=== PATIENT | male | born 1950 | race Caucasian/White ===

== ENCOUNTER 2019-05-31 19:35 | Inpatient (IN) | payer OTHER ==
[~2019-05-31] VITALS: Ht 175.3 cm; Wt 61.5 kg
[2019-05-31] MEDS ORDERED: POLYETHYLENE GLYCOL (19:59)
[2019-05-31] MEDS ORDERED: ASPI-496 PO (19:59)
[2019-05-31] MEDS ORDERED: CYAN100028 PO (19:59)
[2019-05-31] MEDS ORDERED: DOCUSATE (19:59)
[2019-05-31] MEDS ORDERED: HYDR-3240 PO (19:59)
[2019-05-31] MEDS ORDERED: ENSURE (19:59)
[2019-05-31] MEDS ORDERED: LEVE500T53 PO (19:59)
[2019-05-31] MEDS ORDERED: DICY10CA3 PO (19:59)
[2019-05-31] MEDS ORDERED: PANT40TA5 PO (19:59)
[2019-05-31] MEDS ORDERED: MULTIVITAMIN (19:59)
[2019-05-31] MEDS ORDERED: SODIUM CHLORIDE 0.9% 1,000ML IVBOLUS ONE (20:30)
[2019-05-31] MEDS ORDERED: MORPHINE SULFATE 4 MG/ML, 1ML IVPush PRN (20:30)
--- NOTE | 2019-05-31 20:31 | NUR ---
pt brought to rr and back to room. lab now at bedside. awaiting esophagram
[2019-05-31] MEDS ORDERED: MORPHINE SULFATE 4 MG/ML, 1ML ONE (20:40)
--- NOTE | 2019-05-31 20:43 | NUR ---
pt in radiology at this time
[2019-05-31] MEDS ORDERED: OMNIPAQUE 350 MG/ML, 150 ML BOTTLE ONE (20:52)
--- NOTE | 2019-05-31 21:00 | NUR ---
PT MEDICATED FOR COMPLAINT OF RIGHT ARM PAIN. POC DISCUSSED. PT DENIES FURTHER NEEDS AT THIS TIME.
[2019-05-31 21:07] LABS: TROPONIN I < 0.015 ng/mL (0.000-0.045)
--- NOTE | 2019-05-31 21:30 | NUR ---
MD AT BEDSIDE DISCUSSING POC. PT AGREEABLE TO ADMIT. PT AND SPOUSE DENY FURTHER NEEDS AT THIS TIME.
[2019-05-31] MEDS ORDERED: D5%-0.45NACL+KCL 20MEQ 1,000 ML IV SCH (21:47)
[2019-05-31] MEDS ORDERED: hydrALAzine 20 MG/ML, 1ML IVPush PRN (22:00)
[2019-05-31] MEDS ORDERED: ONDANSETRON ODT 4 MG PO PRN (22:00)
[2019-05-31 22:21] VITALS: BP 147/73
[2019-05-31] MEDS ORDERED: D5%-0.9% NACL 1,000 ML IV SCH (22:30)
[2019-05-31 22:42] LABS: FREE T4 (FREE THYROXINE) 0.95 ng/dL (0.76-1.46)
[2019-05-31] MEDS ORDERED: OMNIPAQUE 350 MG/ML, 75ML BOTTLE ONE (23:34)
[2019-06-01] MEDS: morphine SULFATE 10 MG/ML, 1ML IVPush PRN ×4 (00:24→06:18)
[2019-06-01 01:02] LABS: CLOSTRIDIUM DIFFICILE ANTIGEN NEGATIVE; CLOSTRIDIUM DIFFICILE TOXIN NEGATIVE (Negative)
[2019-06-01 02:11] VITALS: BP 126/65
[2019-06-01 04:27] LABS: BASOPHILS # (AUTO) 0.07 x10^3/uL (0-0.1); BASOPHILS % (AUTO) 1 % (0-1); EOSINOPHILS # (AUTO) 0.06 x10^3/uL (0-0.4); EOSINOPHILS % (AUTO) 1 % (1-7); LYMPHOCYTES # (AUTO) 1.15 x10^3/uL (1-3.4); LYMPHOCYTES % (AUTO) 12 % (22-44); MD NO; MEAN CORPUSCULAR HGB CONC 32.3 g/dL (33.2-36.2); MEAN CORPUSCULAR VOLUME 89.9 fL (81-97); MEAN PLATELET VOLUME 7.5 fL (7.4-10.4); MONOCYTES # (AUTO) 0.87 x10^3/uL (0.2-0.8); MONOCYTES % (AUTO) 9 % (2-9); NEUTROPHILS # (AUTO) 7.38 x10^3/uL (1.8-6.8); NEUTROPHILS % (AUTO) 78 % (42-75); PLATELET COUNT 332 x10^3/uL (130-400); RED BLOOD COUNT 4.35 x10^6/uL (4.38-5.82); RED CELL DISTRIBUTION WIDTH 15.2 % (9.4-14.8)
[2019-06-01 04:35] LABS: ALANINE AMINOTRANSFERASE 32 U/L (12-78); ALBUMIN 2.8 g/dL (3.4-5.0); ANION GAP 5 mmol/L (5-15); CALCIUM 8.4 mg/dL (8.5-10.1); CHLORIDE 110 mmol/L (98-107); CREATININE 0.66 mg/dL (0.7-1.3)
[2019-06-01 04:39] LABS: ALKALINE PHOSPHATASE 92 U/L (45-117); BILIRUBIN,TOTAL 0.3 mg/dL (0.2-1.0); CHOL/HDL RATIO 3.9; CHOLESTEROL, TOTAL 205 mg/dL (140-239); HDL CHOL % 25 % (26-37); HDL CHOLESTEROL (DIRECT) 52 mg/dL (40-60); LDL CHOLESTEROL,CALCULATED 130 mg/dL (54-169); LDL/HDL RATIO 2.5 (0.5-3.0); TOTAL PROTEIN 5.9 g/dL (6.4-8.2); TRIGLYCERIDES 117 mg/dL (50-200); VLDL CHOLESTEROL 23 mg/dL (0-25)
[2019-06-01 06:59] VITALS: BP 133/79
[2019-06-01] MEDS ORDERED: PANTOPRAZOLE 40 MG IV IVPush SCH (09:00)
[2019-06-01] MEDS: LEVETIRACETAM 500 MG in SODIUM CHLORIDE 0.9% 100 ML IV SCH (10:56)
[2019-06-01] MEDS: HYDROmorphone 2 MG/ML, 1ML IVPush PRN ×3 (12:29→23:34)
[2019-06-01] MEDS ORDERED: HYDROmorphone 1 MG/ML, 1ML INJ IV PRN ×2 (12:30→15:30)
[2019-06-01] MEDS: methylPREDNISolone SOD SUCC 40 MG/ML IV SCH (13:09)
[2019-06-01] MEDS: LIDODERM 5% PATCH TD SCH (13:09)
[2019-06-01] MEDS: D5%-0.9% NACL 1,000 ML IV SCH ×2 (13:10→23:38)
[2019-06-01] MEDS ORDERED: SUCCINYLCHOLINE 20 MG/ML, 10ML ONE (14:50)
[2019-06-01] MEDS ORDERED: PROPOFOL 10 MG/ML, 20ML ONE (14:50)
[2019-06-01] MEDS ORDERED: MIDAZOLAM 1 MG/ML, 2ML ONE ×2 (14:51→15:07)
[2019-06-01] MEDS ORDERED: FENTANYL PF 100 MCG/2ML ONE (14:52)
[2019-06-01] MEDS ORDERED: ONDANSETRON 2MG/ML, 2ML IVPush PRN (15:30)
[2019-06-01] MEDS ORDERED: PROMETHAZINE 25 MG/ML, 1ML IV PRN (15:30)
[2019-06-01] MEDS ORDERED: hydrALAzine 20 MG/ML, 1ML IV PRN (15:30)
[2019-06-01] MEDS ORDERED: ALBUTEROL SULFATE 2.5 MG/3 ML NPPB PRN (15:30)
[2019-06-01] MEDS ORDERED: MEPERIDINE/PF 25MG/0.5ML IVPush PRN (15:30)
[2019-06-01] MEDS ORDERED: METOCLOPRAMIDE 5 MG/ML, 2ML IV PRN (15:30)
[2019-06-01] MEDS ORDERED: LABETALOL 5MG/ML, 20ML IV PRN (15:30)
[2019-06-01] MEDS ORDERED: KETOROLAC 30 MG/1 ML IV PRN (15:30)
[2019-06-01] MEDS ORDERED: OXYcodone 5 MG/5 ML ORAL.SOL UDC PO PRN (15:30)
[2019-06-01] MEDS ORDERED: FENTANYL PF 100 MCG/2ML IV PRN (15:30)
[2019-06-01 17:12] VITALS: BP 165/81
[2019-06-01] MEDS: ONDANSETRON 2MG/ML, 2ML IVPush PRN (17:37)
[2019-06-01 19:08] VITALS: BP 146/79
[2019-06-01] MEDS: PANTOPRAZOLE 40 MG IV IVPush SCH (21:10)
[2019-06-01] MEDS ORDERED: ONDANSETRON 2MG/ML, 2ML IVPush ONE (22:00)
[2019-06-01] MEDS: PROMETHAZINE 25 MG/ML, 1ML IM PRN (23:34)
[2019-06-02] MEDS: LIDODERM REMOVE PATCH NOTE XX SCH (01:09)
[2019-06-02 02:16] VITALS: BP 147/73
[2019-06-02 05:14] LABS: ANION GAP 6 mmol/L (5-15); CALCIUM 8.9 mg/dL (8.5-10.1); CHLORIDE 105 mmol/L (98-107); CREATININE 0.66 mg/dL (0.7-1.3)
[2019-06-02 05:21] LABS: BASOPHILS # (AUTO) 0.01 x10^3/uL (0-0.1); BASOPHILS % (AUTO) 0 % (0-1); EOSINOPHILS % (AUTO) 0 % (1-7); LYMPHOCYTES # (AUTO) 0.87 x10^3/uL (1-3.4); LYMPHOCYTES % (AUTO) 6 % (22-44); MD NO; MEAN CORPUSCULAR HEMOGLOBIN 28.2 pg (27.5-34.5); MEAN CORPUSCULAR HGB CONC 31.9 g/dL (33.2-36.2); MEAN CORPUSCULAR VOLUME 88.3 fL (81-97); MEAN PLATELET VOLUME 7.6 fL (7.4-10.4); MONOCYTES # (AUTO) 0.98 x10^3/uL (0.2-0.8); MONOCYTES % (AUTO) 7 % (2-9); NEUTROPHILS # (AUTO) 12.13 x10^3/uL (1.8-6.8); NEUTROPHILS % (AUTO) 87 % (42-75); PLATELET COUNT 374 x10^3/uL (130-400); RED BLOOD COUNT 4.65 x10^6/uL (4.38-5.82); RED CELL DISTRIBUTION WIDTH 14.7 % (9.4-14.8)
[2019-06-02 07:10] VITALS: BP 144/73
[2019-06-02] MEDS: D5%-0.9% NACL 1,000 ML IV SCH ×3 (07:44→23:16)
[2019-06-02] MEDS: PROMETHAZINE 25 MG/ML, 1ML IM PRN (07:49)
[2019-06-02] MEDS: methylPREDNISolone SOD SUCC 40 MG/ML IV SCH (08:45)
[2019-06-02] MEDS: PANTOPRAZOLE 40 MG IV IVPush SCH ×2 (08:45→19:58)
[2019-06-02] MEDS: HYDROmorphone 2 MG/ML, 1ML IVPush PRN ×4 (08:46→23:22)
[2019-06-02] MEDS: LEVETIRACETAM 500 MG in SODIUM CHLORIDE 0.9% 100 ML IV SCH (08:46)
[2019-06-02] MEDS: PROMETHAZINE 25 MG/ML, 1ML IM SCH ×4 (11:07→23:21)
--- NOTE | 2019-06-02 11:58 | NUR ---
TF goal recs: Jevity 1.2 @ 65 ml/hour, begin at 20 ml/hour and advance 10 ml q 8 - 12 hours to goal (monitor mag and phos for signs of refeeding)
[2019-06-02] MEDS: LIDODERM 5% PATCH TD SCH (12:33)
[2019-06-02 19:00] VITALS: BP 146/85
[2019-06-03] MEDS: LIDODERM REMOVE PATCH NOTE XX SCH (01:09)
[2019-06-03 02:17] VITALS: BP 137/85
[2019-06-03] MEDS: PROMETHAZINE 25 MG/ML, 1ML IM SCH ×5 (03:51→22:00)
[2019-06-03] MEDS: HYDROmorphone 2 MG/ML, 1ML IVPush PRN ×6 (03:51→21:30)
[2019-06-03 05:09] LABS: MEAN CORPUSCULAR HEMOGLOBIN 28.8 pg (27.5-34.5); MEAN CORPUSCULAR HGB CONC 32.2 g/dL (33.2-36.2); MEAN CORPUSCULAR VOLUME 89.6 fL (81-97); MEAN PLATELET VOLUME 7.8 fL (7.4-10.4); PLATELET COUNT 355 x10^3/uL (130-400)
[2019-06-03 05:18] LABS: ANION GAP 4 mmol/L (5-15); CALCIUM 8.7 mg/dL (8.5-10.1); CHLORIDE 105 mmol/L (98-107)
[2019-06-03 05:20] LABS: CREATININE 0.69 mg/dL (0.7-1.3)
[2019-06-03 05:43] LABS: BASOPHILS # (AUTO) 0.03 x10^3/uL (0-0.1); BASOPHILS % (AUTO) 0 % (0-1); EOSINOPHILS # (AUTO) 0.03 x10^3/uL (0-0.4); EOSINOPHILS % (AUTO) 0 % (1-7); LYMPHOCYTES # (AUTO) 0.81 x10^3/uL (1-3.4); LYMPHOCYTES % (AUTO) 5 % (22-44); MD SCAN; MONOCYTES % (AUTO) 10 % (2-9); NEUTROPHILS # (AUTO) 15.02 x10^3/uL (1.8-6.8); NEUTROPHILS % (AUTO) 85 % (42-75)
[2019-06-03] MEDS: D5%-0.9% NACL 1,000 ML IV SCH ×2 (06:10→16:45)
[2019-06-03 07:15] VITALS: BP 154/83
[2019-06-03] MEDS ORDERED: POTASSIUM CHLORIDE 20 MEQ in SODIUM CHLORIDE 0.9% 250 ML IV ONE (08:00)
[2019-06-03] MEDS: methylPREDNISolone SOD SUCC 40 MG/ML IV SCH (08:27)
[2019-06-03] MEDS: PANTOPRAZOLE 40 MG IV IVPush SCH ×2 (08:27→21:30)
[2019-06-03] MEDS: LEVETIRACETAM 500 MG in SODIUM CHLORIDE 0.9% 100 ML IV SCH (11:24)
[2019-06-03] MEDS: ENOXAPARIN 40 MG/0.4 ML SQ SCH (11:24)
[2019-06-03] MEDS: LEVOFLOXACIN/PMX 500MG/100ML 100 ML IV SCH (11:25)
[2019-06-03 12:28] VITALS: BP 119/80
[2019-06-03] MEDS: LIDODERM 5% PATCH TD SCH (13:01)
[2019-06-03] MEDS ORDERED: POLYETHYLENE GLYCOL 17 GM PACKET ONE (14:21)
[2019-06-03] MEDS ORDERED: SENNOSIDES 8.6 MG TABLET ONE (14:22)
[2019-06-03] MEDS: BACLOFEN 10 MG TABLET PO PRN (14:25)
[2019-06-03] MEDS ORDERED: BISACODYL 10 MG SUPP PR PRN (14:30)
[2019-06-03] MEDS: POLYETHYLENE GLYCOL 17 GM PACKET PO PRN (15:00)
[2019-06-03 19:32] VITALS: BP 136/83
[2019-06-04] MEDS: BACLOFEN 10 MG TABLET PO PRN (00:26)
[2019-06-04] MEDS: D5%-0.9% NACL 1,000 ML IV SCH ×3 (00:26→19:33)
[2019-06-04] MEDS: HYDROmorphone 2 MG/ML, 1ML IVPush PRN ×4 (00:27→19:26)
[2019-06-04] MEDS: LIDODERM REMOVE PATCH NOTE XX SCH (00:35)
[2019-06-04 00:54] VITALS: BP 157/83
[2019-06-04] MEDS: PROMETHAZINE 25 MG/ML, 1ML IM SCH ×6 (02:00→22:00)
[2019-06-04 05:11] LABS: MEAN CORPUSCULAR HEMOGLOBIN 28.7 pg (27.5-34.5); MEAN CORPUSCULAR HGB CONC 32.1 g/dL (33.2-36.2); MEAN CORPUSCULAR VOLUME 89.6 fL (81-97); MEAN PLATELET VOLUME 8.4 fL (7.4-10.4); PLATELET COUNT 319 x10^3/uL (130-400); RED BLOOD COUNT 4.45 x10^6/uL (4.38-5.82); RED CELL DISTRIBUTION WIDTH 15.3 % (9.4-14.8)
[2019-06-04 05:18] LABS: ANION GAP 4 mmol/L (5-15); CALCIUM 8.6 mg/dL (8.5-10.1); CHLORIDE 105 mmol/L (98-107)
[2019-06-04 05:45] LABS: BASOPHILS # (AUTO) 0.03 x10^3/uL (0-0.1); BASOPHILS % (AUTO) 0 % (0-1); EOSINOPHILS # (AUTO) 0.12 x10^3/uL (0-0.4); EOSINOPHILS % (AUTO) 1 % (1-7); LYMPHOCYTES # (AUTO) 1.11 x10^3/uL (1-3.4); LYMPHOCYTES % (AUTO) 8 % (22-44); MD SCAN; MONOCYTES % (AUTO) 11 % (2-9); NEUTROPHILS # (AUTO) 10.72 x10^3/uL (1.8-6.8); NEUTROPHILS % (AUTO) 80 % (42-75)
[2019-06-04] MEDS: ACETAMINOPHEN 325 MG TABLET PO PRN ×2 (06:24→19:26)
[2019-06-04 06:44] VITALS: BP 150/88
[2019-06-04] MEDS: PANTOPRAZOLE 40 MG IV IVPush SCH ×2 (08:17→19:26)
[2019-06-04] MEDS: LEVETIRACETAM 500 MG in SODIUM CHLORIDE 0.9% 100 ML IV SCH (08:17)
[2019-06-04] MEDS: SENNOSIDES 8.8 MG/5 ML ORAL SOL PO SCH (08:17)
[2019-06-04] MEDS: methylPREDNISolone SOD SUCC 40 MG/ML IV SCH (08:18)
[2019-06-04] MEDS: LEVOFLOXACIN/PMX 500MG/100ML 100 ML IV SCH ×2 (08:52→10:23)
[2019-06-04] MEDS: KETOROLAC 30 MG/1 ML IVPush PRN (10:30)
[2019-06-04] MEDS: ENOXAPARIN 40 MG/0.4 ML SQ SCH ×2 (11:00→16:26)
[2019-06-04] MEDS: LIDODERM 5% PATCH TD SCH ×2 (12:30→15:24)
[2019-06-04 12:36] VITALS: BP 131/82
[2019-06-04] MEDS ORDERED: MAGNESIUM SULFATE PMX 2GM/50ML 50 ML IV ONE (15:00)
[2019-06-04 19:22] VITALS: BP 144/73
[2019-06-05] MEDS: HYDROmorphone 2 MG/ML, 1ML IVPush PRN ×5 (00:33→23:29)
[2019-06-05 00:36] VITALS: BP 135/78
[2019-06-05] MEDS: PROMETHAZINE 25 MG/ML, 1ML IM SCH ×6 (02:00→22:00)
[2019-06-05] MEDS: LIDODERM REMOVE PATCH NOTE XX SCH (03:14)
[2019-06-05] MEDS: D5%-0.9% NACL 1,000 ML IV SCH ×2 (03:14→12:00)
[2019-06-05 04:33] LABS: BASOPHILS # (AUTO) 0.04 x10^3/uL (0-0.1); BASOPHILS % (AUTO) 0 % (0-1); EOSINOPHILS # (AUTO) 0.07 x10^3/uL (0-0.4); EOSINOPHILS % (AUTO) 1 % (1-7); LYMPHOCYTES # (AUTO) 0.95 x10^3/uL (1-3.4); LYMPHOCYTES % (AUTO) 9 % (22-44); MD NO; MEAN CORPUSCULAR HEMOGLOBIN 27.8 pg (27.5-34.5); MEAN CORPUSCULAR HGB CONC 31.6 g/dL (33.2-36.2); MEAN CORPUSCULAR VOLUME 87.8 fL (81-97); MONOCYTES # (AUTO) 1.16 x10^3/uL (0.2-0.8); MONOCYTES % (AUTO) 11 % (2-9); NEUTROPHILS # (AUTO) 8.75 x10^3/uL (1.8-6.8); NEUTROPHILS % (AUTO) 80 % (42-75); PLATELET COUNT 317 x10^3/uL (130-400); RED BLOOD COUNT 4.21 x10^6/uL (4.38-5.82); RED CELL DISTRIBUTION WIDTH 14.9 % (9.4-14.8)
[2019-06-05 04:40] LABS: INTERNATIONAL NORMALIZED RATIO 1.12 (0.93-1.1); PROTHROMBIN TIME 11.7 Seconds (9.6-11.5)
[2019-06-05 06:54] VITALS: BP 126/80
[2019-06-05] MEDS: SENNOSIDES 8.8 MG/5 ML ORAL SOL PO SCH ×2 (09:00→09:14)
[2019-06-05] MEDS: PANTOPRAZOLE 40 MG IV IVPush SCH ×2 (09:14→20:29)
[2019-06-05] MEDS: LEVETIRACETAM 500 MG in SODIUM CHLORIDE 0.9% 100 ML IV SCH (09:14)
[2019-06-05] MEDS: methylPREDNISolone SOD SUCC 40 MG/ML IV SCH (09:15)
[2019-06-05] MEDS: LEVOFLOXACIN/PMX 500MG/100ML 100 ML IV SCH (09:49)
[2019-06-05] MEDS ORDERED: LIDOCAINE 2%, 6 ML JEL.PF.APP MM ONE (10:06)
[2019-06-05] MEDS ORDERED: LIDOCAINE 1%, 20ML ONE (10:06)
[2019-06-05] MEDS ORDERED: FENTANYL PF 100 MCG/2ML ONE (10:10)
[2019-06-05] MEDS ORDERED: NALOXONE 1 MG/ML, 2ML ONE (10:10)
[2019-06-05] MEDS ORDERED: MIDAZOLAM 1 MG/ML, 5ML ONE (10:10)
[2019-06-05] MEDS ORDERED: FLUMAZENIL 0.1 MG/1 ML, 5ML ONE (10:10)
[2019-06-05 12:14] VITALS: BP 138/77
[2019-06-05] MEDS ORDERED: MAGNESIUM SULFATE PMX 2GM/50ML 50 ML IV ONE (13:00)
[2019-06-05] MEDS ORDERED: POTASSIUM PHOSPHATE 44 MEQ in SODIUM CHLORIDE 0.9% 500 ML IV ONE (13:30)
[2019-06-05] MEDS ORDERED: EPINEPHRINE 1 MG/ML, 1ML ONE (18:32)
[2019-06-05] MEDS ORDERED: BUPIVACAINE/PF 0.5% ONE (18:32)
[2019-06-05] MEDS ORDERED: MIDAZOLAM 1 MG/ML, 2ML ONE (18:33)
[2019-06-05] MEDS ORDERED: FENTANYL PF 250 MCG/5ML ONE (18:34)
[2019-06-05] MEDS ORDERED: NEOSTIGMINE 1 MG/ML, 10ML ONE (19:09)
[2019-06-05] MEDS ORDERED: DEXAMETHASONE 4 MG/ML, 1ML ONE (19:09)
[2019-06-05] MEDS ORDERED: PROPOFOL 10 MG/ML, 20ML ONE (19:09)
[2019-06-05] MEDS ORDERED: SUCCINYLCHOLINE 20 MG/ML, 10ML ONE (19:09)
[2019-06-05] MEDS ORDERED: GLYCOPYRROLATE 0.2MG/1ML, 5ML ONE (19:09)
[2019-06-05] MEDS ORDERED: CEFAZOLIN 1,000 MG ONE (19:09)
[2019-06-05] MEDS ORDERED: ONDANSETRON 2MG/ML, 2ML ONE (19:09)
[2019-06-05] MEDS ORDERED: ROCURONIUM 10MG/ML,5ML ONE (19:09)
[2019-06-05] MEDS ORDERED: OXYcodone 5 MG/5 ML ORAL.SOL UDC PO PRN (19:30)
[2019-06-05] MEDS ORDERED: MEPERIDINE/PF 25MG/0.5ML IVPush PRN (19:30)
[2019-06-05] MEDS ORDERED: DIAZEPAM 5 MG/ML, 2ML IVPush PRN (19:30)
[2019-06-05] MEDS ORDERED: PROMETHAZINE 25 MG/ML, 1ML IV PRN (19:30)
[2019-06-05] MEDS ORDERED: HYDROmorphone 2 MG/ML, 1ML IVPush PRN (19:30)
[2019-06-05] MEDS ORDERED: FENTANYL PF 100 MCG/2ML IV PRN (19:30)
[2019-06-05] MEDS ORDERED: hydrALAzine 20 MG/ML, 1ML IV PRN (19:30)
[2019-06-05] MEDS ORDERED: ACETAMINOPHEN 325 MG TABLET PO PRN (19:30)
[2019-06-05] MEDS ORDERED: ALBUTEROL SULFATE 2.5 MG/3 ML NPPB PRN (19:30)
[2019-06-05] MEDS ORDERED: LABETALOL 5MG/ML, 20ML IV PRN (19:30)
[2019-06-05] MEDS ORDERED: KETOROLAC 30 MG/1 ML IV PRN (19:30)
[2019-06-05 20:35] VITALS: BP 153/86
[2019-06-05] MEDS: KETOROLAC 30 MG/1 ML IVPush PRN (22:31)
[2019-06-06 00:35] VITALS: BP 131/77
[2019-06-06] MEDS: D5%-0.9% NACL 1,000 ML IV SCH ×3 (01:32→20:00)
[2019-06-06] MEDS: PROMETHAZINE 25 MG/ML, 1ML IM SCH ×6 (01:38→20:51)
[2019-06-06] MEDS: LIDODERM 5% PATCH TD SCH (01:48)
[2019-06-06] MEDS: LIDODERM REMOVE PATCH NOTE XX SCH (02:25)
[2019-06-06] MEDS: HYDROmorphone 2 MG/ML, 1ML IVPush PRN ×6 (02:30→20:56)
[2019-06-06 04:37] LABS: BASOPHILS # (AUTO) 0.01 x10^3/uL (0-0.1); BASOPHILS % (AUTO) 0 % (0-1); EOSINOPHILS % (AUTO) 1 % (1-7); LYMPHOCYTES # (AUTO) 0.81 x10^3/uL (1-3.4); LYMPHOCYTES % (AUTO) 7 % (22-44); MD NO; MEAN CORPUSCULAR HEMOGLOBIN 28.6 pg (27.5-34.5); MEAN CORPUSCULAR HGB CONC 32.3 g/dL (33.2-36.2); MEAN CORPUSCULAR VOLUME 88.4 fL (81-97); MONOCYTES # (AUTO) 0.76 x10^3/uL (0.2-0.8); MONOCYTES % (AUTO) 6 % (2-9); NEUTROPHILS # (AUTO) 10.41 x10^3/uL (1.8-6.8); NEUTROPHILS % (AUTO) 86 % (42-75); PLATELET COUNT 352 x10^3/uL (130-400); RED BLOOD COUNT 4.24 x10^6/uL (4.38-5.82); RED CELL DISTRIBUTION WIDTH 15.2 % (9.4-14.8)
[2019-06-06 04:52] LABS: ANION GAP 5 mmol/L (5-15); CALCIUM 8.3 mg/dL (8.5-10.1); CHLORIDE 104 mmol/L (98-107); CREATININE 0.64 mg/dL (0.7-1.3)
[2019-06-06] MEDS: KETOROLAC 30 MG/1 ML IVPush PRN (05:08)
[2019-06-06 06:42] VITALS: BP 123/76
[2019-06-06] MEDS: LEVETIRACETAM 500 MG in SODIUM CHLORIDE 0.9% 100 ML IV SCH (08:10)
[2019-06-06] MEDS: methylPREDNISolone SOD SUCC 40 MG/ML IV SCH (08:11)
[2019-06-06] MEDS: PANTOPRAZOLE 40 MG IV IVPush SCH ×2 (08:11→20:51)
[2019-06-06] MEDS: SENNOSIDES 8.8 MG/5 ML ORAL SOL PO SCH (08:11)
[2019-06-06] MEDS: LEVOFLOXACIN/PMX 500MG/100ML 100 ML IV SCH (09:31)
[2019-06-06] MEDS ORDERED: MAGNESIUM SULFATE PMX 2GM/50ML 50 ML IV ONE (10:00)
[2019-06-06] MEDS: ENOXAPARIN 40 MG/0.4 ML SQ SCH (10:45)
[2019-06-06 12:23] VITALS: BP 106/62
[2019-06-06 18:51] VITALS: BP 151/85
[2019-06-07] MEDS: HYDROmorphone 2 MG/ML, 1ML IVPush PRN ×7 (00:37→21:31)
[2019-06-07] MEDS ORDERED: ALBUTEROL/IPRATROPIUM 2.5MG/0.5MG, 3 ML ONE (01:05)
[2019-06-07] MEDS: PROMETHAZINE 25 MG/ML, 1ML IM SCH ×6 (01:29→21:26)
[2019-06-07] MEDS: LIDODERM 5% PATCH TD SCH (01:34)
[2019-06-07 01:36] VITALS: BP 134/76
[2019-06-07] MEDS ORDERED: ALBUTEROL/IPRATROPIUM 2.5MG/0.5MG, 3 ML NPPB SCH (02:00)
[2019-06-07] MEDS ORDERED: ALBUTEROL/IPRATROPIUM 2.5MG/0.5MG, 3 ML NPPB ONE (02:30)
[2019-06-07] MEDS: D5%-0.9% NACL 1,000 ML IV SCH ×2 (03:43→13:25)
[2019-06-07] MEDS: PANTOPRAZOLE 40 MG IV IVPush SCH ×2 (08:02→20:51)
[2019-06-07] MEDS: methylPREDNISolone SOD SUCC 40 MG/ML IV SCH (08:02)
[2019-06-07] MEDS: SENNOSIDES 8.8 MG/5 ML ORAL SOL PO SCH (08:03)
[2019-06-07] MEDS: LEVETIRACETAM 500 MG in SODIUM CHLORIDE 0.9% 100 ML IV SCH (08:19)
[2019-06-07] MEDS: LEVOFLOXACIN/PMX 500MG/100ML 100 ML IV SCH (08:19)
[2019-06-07 08:22] VITALS: BP 155/82
[2019-06-07] MEDS: ENOXAPARIN 40 MG/0.4 ML SQ SCH (10:38)
[2019-06-07] MEDS ORDERED: MAGNESIUM SULFATE PMX 2GM/50ML 50 ML IV ONE (11:00)
[2019-06-07 12:34] VITALS: BP 118/73
[2019-06-07] MEDS: POLYETHYLENE GLYCOL 17 GM PACKET PO PRN (14:07)
[2019-06-07 17:26] VITALS: BP 116/72
[2019-06-07 20:42] VITALS: BP 144/71
[2019-06-07] MEDS ORDERED: LACTULOSE 20 GM/30 ML UDC GT ONE (21:30)
[2019-06-08] MEDS: HYDROmorphone 2 MG/ML, 1ML IVPush PRN ×3 (00:43→06:39)
[2019-06-08 02:00] VITALS: BP 137/81
[2019-06-08] MEDS: PROMETHAZINE 25 MG/ML, 1ML IM SCH ×7 (02:00→21:20)
[2019-06-08] MEDS: LIDODERM 5% PATCH TD SCH ×2 (03:40→15:20)
[2019-06-08 04:51] LABS: BASOPHILS # (AUTO) 0.01 x10^3/uL (0-0.1); BASOPHILS % (AUTO) 0 % (0-1); EOSINOPHILS # (AUTO) 0.09 x10^3/uL (0-0.4); EOSINOPHILS % (AUTO) 1 % (1-7); LYMPHOCYTES # (AUTO) 0.66 x10^3/uL (1-3.4); LYMPHOCYTES % (AUTO) 7 % (22-44); MD NO; MEAN CORPUSCULAR HEMOGLOBIN 28.5 pg (27.5-34.5); MEAN CORPUSCULAR HGB CONC 31.8 g/dL (33.2-36.2); MEAN CORPUSCULAR VOLUME 89.7 fL (81-97); MEAN PLATELET VOLUME 8.2 fL (7.4-10.4); MONOCYTES % (AUTO) 10 % (2-9); NEUTROPHILS # (AUTO) 7.36 x10^3/uL (1.8-6.8); NEUTROPHILS % (AUTO) 82 % (42-75); PLATELET COUNT 349 x10^3/uL (130-400); RED BLOOD COUNT 4.17 x10^6/uL (4.38-5.82); RED CELL DISTRIBUTION WIDTH 15.1 % (9.4-14.8)
[2019-06-08 05:02] LABS: ALBUMIN 2.3 g/dL (3.4-5.0); ANION GAP 6 mmol/L (5-15); CALCIUM 8.6 mg/dL (8.5-10.1); CHLORIDE 102 mmol/L (98-107)
[2019-06-08 05:06] LABS: ALANINE AMINOTRANSFERASE 34 U/L (12-78); ALKALINE PHOSPHATASE 103 U/L (45-117); BILIRUBIN,TOTAL 0.7 mg/dL (0.2-1.0); CREATININE 0.57 mg/dL (0.7-1.3); TOTAL PROTEIN 5.9 g/dL (6.4-8.2)
[2019-06-08 07:48] VITALS: BP 123/75
[2019-06-08] MEDS ORDERED: POTASSIUM CHLORIDE 40 MEQ in SODIUM CHLORIDE 0.9% 500 ML IV ONE (08:00)
[2019-06-08] MEDS: LEVETIRACETAM 500 MG in SODIUM CHLORIDE 0.9% 100 ML IV SCH (08:44)
[2019-06-08] MEDS: LEVOFLOXACIN/PMX 500MG/100ML 100 ML IV SCH (10:05)
[2019-06-08] MEDS: methylPREDNISolone SOD SUCC 40 MG/ML IV SCH (10:05)
[2019-06-08] MEDS: PANTOPRAZOLE 40 MG IV IVPush SCH (10:05)
[2019-06-08] MEDS: SENNOSIDES 8.8 MG/5 ML ORAL SOL PO SCH (10:35)
[2019-06-08] MEDS: OXYcodone IR 5MG TABLET PO PRN ×2 (10:36→15:20)
[2019-06-08] MEDS: ENOXAPARIN 40 MG/0.4 ML SQ SCH (13:09)
[2019-06-08 15:24] VITALS: BP 120/74
[2019-06-08] MEDS ORDERED: PROMETHAZINE 25 MG/ML, 1ML IM PRN (18:30)
[2019-06-08 19:33] VITALS: BP 125/84
[2019-06-08] MEDS: PANTOPROZOLE 40MG TABLET PO SCH (20:50)
[2019-06-08] MEDS: ONDANSETRON 2MG/ML, 2ML IVPush PRN (23:24)
[2019-06-09 00:23] VITALS: BP 132/84
[2019-06-09] MEDS: PROMETHAZINE 25 MG/ML, 1ML IM SCH ×6 (01:32→22:30)
[2019-06-09] MEDS: LIDODERM 5% PATCH TD SCH (03:26)
[2019-06-09 07:28] VITALS: BP 118/76
[2019-06-09 07:58] LABS: BASOPHILS # (AUTO) 0.01 x10^3/uL (0-0.1); BASOPHILS % (AUTO) 0 % (0-1); EOSINOPHILS # (AUTO) 0.03 x10^3/uL (0-0.4); EOSINOPHILS % (AUTO) 0 % (1-7); LYMPHOCYTES # (AUTO) 0.84 x10^3/uL (1-3.4); LYMPHOCYTES % (AUTO) 10 % (22-44); MD NO; MEAN CORPUSCULAR HGB CONC 32.3 g/dL (33.2-36.2); MEAN CORPUSCULAR VOLUME 86.9 fL (81-97); MEAN PLATELET VOLUME 7.6 fL (7.4-10.4); MONOCYTES # (AUTO) 1.05 x10^3/uL (0.2-0.8); MONOCYTES % (AUTO) 13 % (2-9); NEUTROPHILS # (AUTO) 6.22 x10^3/uL (1.8-6.8); NEUTROPHILS % (AUTO) 76 % (42-75); PLATELET COUNT 410 x10^3/uL (130-400); RED BLOOD COUNT 4.19 x10^6/uL (4.38-5.82); RED CELL DISTRIBUTION WIDTH 15.1 % (9.4-14.8)
[2019-06-09 08:08] LABS: ANION GAP 5 mmol/L (5-15); CALCIUM 8.6 mg/dL (8.5-10.1); CHLORIDE 104 mmol/L (98-107); CREATININE 0.53 mg/dL (0.7-1.3)
[2019-06-09] MEDS ORDERED: BENZONATATE 100 MG CAPSULE PO PRN (09:00)
[2019-06-09] MEDS: PANTOPROZOLE 40MG TABLET PO SCH ×2 (09:15→17:56)
[2019-06-09] MEDS: LEVETIRACETAM 500 MG TABLET PO SCH (09:15)
[2019-06-09] MEDS: LEVOFLOXACIN/PMX 500MG/100ML 100 ML IV SCH (09:17)
[2019-06-09] MEDS: GUAIFENESIN 100 MG/5 ML, 5ML UDC PO PRN ×2 (09:24→17:55)
[2019-06-09] MEDS: SENNA/DOCUSATE TABLET PO SCH ×2 (10:33→20:24)
[2019-06-09] MEDS: ENOXAPARIN 40 MG/0.4 ML SQ SCH (10:35)
[2019-06-09 13:14] VITALS: BP 117/74
[2019-06-09] MEDS: OXYcodone IR 5MG TABLET PO PRN (18:41)
[2019-06-09 19:26] VITALS: BP 137/80
[2019-06-10] MEDS: ONDANSETRON 2MG/ML, 2ML IVPush PRN (01:48)
[2019-06-10 01:52] VITALS: BP 129/71
[2019-06-10] MEDS: PROMETHAZINE 25 MG/ML, 1ML IM SCH ×2 (02:30→05:39)
[2019-06-10] MEDS: LIDODERM 5% PATCH TD SCH (04:03)
[2019-06-10] MEDS: PANTOPROZOLE 40MG TABLET PO SCH (05:37)
[2019-06-10 07:00] VITALS: BP 127/76
[2019-06-10] MEDS: LEVETIRACETAM 500 MG TABLET PO SCH (09:45)
[2019-06-10] MEDS: PANTOPRAZOLE GRAN. PKT 40 MG GT SCH ×2 (09:45→21:08)
[2019-06-10] MEDS: SENNA/DOCUSATE TABLET PO SCH ×2 (09:54→21:07)
[2019-06-10] MEDS: ENOXAPARIN 40 MG/0.4 ML SQ SCH (11:04)
[2019-06-10 11:15] LABS: BASOPHILS # (AUTO) 0.01 x10^3/uL (0-0.1); BASOPHILS % (AUTO) 0 % (0-1); EOSINOPHILS # (AUTO) 0.11 x10^3/uL (0-0.4); EOSINOPHILS % (AUTO) 1 % (1-7); LYMPHOCYTES # (AUTO) 0.69 x10^3/uL (1-3.4); LYMPHOCYTES % (AUTO) 8 % (22-44); MD NO; MEAN CORPUSCULAR HEMOGLOBIN 28.7 pg (27.5-34.5); MEAN CORPUSCULAR HGB CONC 32.5 g/dL (33.2-36.2); MEAN CORPUSCULAR VOLUME 88.3 fL (81-97); MEAN PLATELET VOLUME 8.1 fL (7.4-10.4); MONOCYTES # (AUTO) 1.03 x10^3/uL (0.2-0.8); MONOCYTES % (AUTO) 12 % (2-9); NEUTROPHILS # (AUTO) 6.98 x10^3/uL (1.8-6.8); NEUTROPHILS % (AUTO) 79 % (42-75); PLATELET COUNT 430 x10^3/uL (130-400); RED BLOOD COUNT 4.18 x10^6/uL (4.38-5.82); RED CELL DISTRIBUTION WIDTH 15.4 % (9.4-14.8)
[2019-06-10] MEDS ORDERED: PROMETHAZINE 25MG TABLET PO PRN (12:00)
[2019-06-10] MEDS: LIDODERM REMOVE PATCH NOTE XX SCH (15:30)
[2019-06-10 15:42] VITALS: BP 115/65
[2019-06-10] MEDS: OXYcodone IR 5MG TABLET PO PRN (17:23)
[2019-06-10] MEDS: POLYETHYLENE GLYCOL 17 GM PACKET PO PRN (17:26)
[2019-06-10 19:14] VITALS: BP 118/75
[2019-06-11 00:47] VITALS: BP 134/85
[2019-06-11] MEDS: LIDODERM 5% PATCH TD SCH (03:50)
[2019-06-11 06:51] VITALS: BP 132/75
[2019-06-11] MEDS ORDERED: PANT40GR GT (07:56)
[2019-06-11] MEDS ORDERED: PROM25TA10 PO (07:56)
[2019-06-11] MEDS ORDERED: ONDA4TAB13 PO (07:56)
[2019-06-11] MEDS ORDERED: BENZ-17 PO (07:56)
[2019-06-11] MEDS ORDERED: SENN-193 PO (07:56)
[2019-06-11] MEDS ORDERED: BACL-19 PO (07:56)
[2019-06-11] MEDS ORDERED: PRED10TA PO (07:56)
[2019-06-11] MEDS ORDERED: LIDO700A20 TD (07:56)
[2019-06-11] MEDS ORDERED: MORP-30 PO (07:56)
[2019-06-11] MEDS: SENNA/DOCUSATE TABLET PO SCH (09:00)
[2019-06-11] MEDS: PANTOPRAZOLE GRAN. PKT 40 MG GT SCH (09:09)
[2019-06-11] MEDS: LEVETIRACETAM 500 MG TABLET PO SCH (09:09)
[2019-06-11 13:52] VITALS: BP 128/80
[2019-06-11] MEDS: ENOXAPARIN 40 MG/0.4 ML SQ SCH (13:52)
== END 2019-06-11 18:23 | disposition home health service (06) | DRG 180 ==
LOC: ED 21:40 → EDIP 21:53 → 4NW 22:15
PROVIDERS: ADMIT Internal Medicine; ATTEND Internal Medicine
PROC: BD11YZZ Fluoroscopy of Esophagus using Other Contrast (ICD-10-PCS; 2019-05-31)
PROC: 0DB58ZX Excision of Esophagus, Via Natural or Artificial Opening Endoscopic, Diagnostic (ICD-10-PCS; 2019-06-01)
PROC: 0D758DZ Dilation of Esophagus with Intraluminal Device, Via Natural or Artificial Opening Endoscopic (ICD-10-PCS; 2019-06-01)
PROC: 0DJ07ZZ Inspection of Upper Intestinal Tract, Via Natural or Artificial Opening (ICD-10-PCS; 2019-06-05)
PROC: 0DH64UZ Insertion of Feeding Device into Stomach, Percutaneous Endoscopic Approach (ICD-10-PCS; principal; 2019-06-05 18:00)
DX: C34.90 Malignant neoplasm of unspecified part of unspecified bronchus or lung (principal); J69.0 Pneumonitis due to inhalation of food and vomit; C79.31 Secondary malignant neoplasm of brain; R47.01 Aphasia; J90 Pleural effusion, not elsewhere classified; R64 Cachexia; C79.51 Secondary malignant neoplasm of bone; K22.10 Ulcer of esophagus without bleeding; C78.89 Secondary malignant neoplasm of other digestive organs; K22.2 Esophageal obstruction; E78.5 Hyperlipidemia, unspecified; E87.6 Hypokalemia; G40.909 Epilepsy, unspecified, not intractable, without status epilepticus; J44.9 Chronic obstructive pulmonary disease, unspecified; K21.9 Gastro-esophageal reflux disease without esophagitis; M19.011 Primary osteoarthritis, right shoulder; M48.02 Spinal stenosis, cervical region; R13.14 Dysphagia, pharyngoesophageal phase; Z66 Do not resuscitate; K71.10 Toxic liver disease with hepatic necrosis, without coma; T45.1X5A Adverse effect of antineoplastic and immunosuppressive drugs, initial encounter; Y92.89 Other specified places as the place of occurrence of the external cause; I69.320 Aphasia following cerebral infarction; Z80.1 Family history of malignant neoplasm of trachea, bronchus and lung; Z87.891 Personal history of nicotine dependence; Z88.0 Allergy status to penicillin; Z92.3 Personal history of irradiation; Z68.20 Body mass index [BMI] 20.0-20.9, adult
CPT/HCPCS: 36415; 73030; 74018; 74220; 76000; J7042; J7620; S0020; 49440; 71045; 71260; 72125; 80048; 80053; 80061; 83036; 83735; 84100; 84439; 84443; 84484; 85025; 85610; 87324; 88305; 88341; 88342; 93005; B4087; G0378; J0171; J0690; J1100; J1170; J1650; J1885; J1953; J1956; J2250; J2405; J2550; J2704; J2710; J3010; J3480; Q9967; C1751; C1769; C1874; C9113; J0330; J2270; J2310; J2920; J3475; J7030; J7040; J7050; J7512